=== PATIENT | male | born 1975 | race Caucasian/White ===

== ENCOUNTER 2018-07-22 18:19 | Emergency (ER) | payer MEDICAID ==
[2018-07-22 18:19] VITALS: BMI 27.3
[2018-07-22 18:28] VITALS: TEMP 99.3
[2018-07-22] MEDS ORDERED: Sodium Chloride 0.9% 1,000 ML IV STA (19:11)
[2018-07-22 19:52] LABS: BASO % 0.5 % (0.0-2.0); EOS # 0.1 K/uL (0.0-0.7); EOS % 0.9 % (0.0-4.0); HEMOGLOBIN 13.2 g/dL (12.0-18.0); LYMPH % 29.4 % (20.0-40.0); MEAN CELL VOLUME 81.8 fl (80.0-94.0); MEAN CORPUSCULAR HEMOGLOBIN 27.2 pg (27.0-31.0); MEAN CORPUSCULAR HGB CONC 33.2 g/dL (33.0-37.0); MEAN PLATELET VOLUME 9.5 fl (7.2-11.7); MONO # 0.6 K/uL (0.0-0.8); MONO % 5.9 % (0.0-10.0); NEUT # 6.5 K/uL (1.8-7.0); NEUT % 63.3 % (50.0-75.0); RBC 4.88 Mil/uL (4.40-5.90); WHITE BLOOD COUNT 10.2 K/uL (4.8-10.8)
[2018-07-22 20:02] LABS: ACETAMINOPHEN < 10.0 ug/ml (10.0-30.0); ALB/GLOB RATIO 1.1 (1.0-2.1); ALBUMIN 4.3 g/dL (3.5-5.0); ALT/SGPT 58 U/L (21-72); AST/SGOT 44 U/L (17-59); BLOOD UREA NITROGEN 15 mg/dl (9-20); CALCIUM 9.6 mg/dL (8.4-10.2); GFR NON-AFRICAN AMERICAN > 60; SALICYLATE < 1.0 mg/dl
[2018-07-22 20:12] LABS: BARBITURATES, UR NEGATIVE (NEGATIVE); BENZODIAZEPINES, UR NEGATIVE (NEGATIVE); OPIATES, UR NEGATIVE (NEGATIVE); PHENCYCLIDINE, UR NEGATIVE (NEGATIVE)
--- NOTE | 2018-07-22 22:37 | ED PDOC ---
HPI: Psych/Substance Abuse Time Seen by Provider: 07/22/18 18:35 Chief Complaint (Nursing): Psychiatric Evaluation Chief Complaint (Provider): suicidal ideation History Per: Patient Onset/Duration Of Symptoms: Days (2 weeks) Additional Complaint(s): 42yo with h/o depression, diabetes, homelessness for evaluation of depression and suicidal ideation with plan to walk in front of cars. He was just discharged today from [facility] after admission for depression and then had an outpatient appointment this afternoon which he missed and started to feel suicidal. Past Medical History Reviewed: Historical Data, Nursing Documentation, Vital Signs Vital Signs: Last Vital Signs Temp 99.3 F 07/22/18 18:25 Pulse 99 H 07/22/18 22:00 Resp 16 07/22/18 18:25 BP 156/86 H 07/22/18 18:25 Pulse Ox 97 07/22/18 18:25 - Medical History PMH: Bipolar Disorder, Depression, HTN, Post Traumatic Stress Disorder (parents 2004) Denies: Anxiety, Diabetes, Hepatitis, HIV, Personality Disorder, Schizophrenia, Seizures, Sexually Transmitted Disease Other PMH: Negative history above obtained from previous charts - Family History Family History: States: Hypertension - Social History Current smoker - smoking cessation education provided: Yes Alcohol: Other (h/o abuse) Drugs: Denies - Immunization History Hx Tetanus Toxoid Vaccination: No Hx Influenza Vaccination: No Hx Pneumococcal Vaccination: No - Home Medications Home Medications: Ambulatory Orders Medication Instructions Recorded MetFORMIN [glucOPHAGE] 1,000 mg PO BID 07/08/18 RX: traZODone [Desyrel] 50 mg PO HS #30 tab 07/10/18 RX: Gabapentin [Neurontin] 300 mg PO BID #60 cap 07/21/18 - Allergies Allergies/Adverse Reactions: Allergies Allergy/AdvReac Type Severity Reaction Status Date / Time haloperidol [From Haldol] AdvReac SWELLING Verified 07/23/18 16:03 Review of Systems ROS Statement: Except As Marked, All Systems Reviewed And Found Negative Psych: Positive for: Anxiety, Depression, Suicidal ideation Physical Exam - Reviewed Nursing Documentation Reviewed: Yes Vital Signs Reviewed: Yes - Physical Exam Appears: Positive for: Non-toxic, No Acute Distress Head Exam: Positive for: ATRAUMATIC, NORMOCEPHALIC Skin: Positive for: Warm, Dry Eye Exam: Positive for: EOMI, PERRL ENT: Positive for: Pharynx Is (clear) Neck: Positive for: Painless ROM, Supple Cardiovascular/Chest: Positive for: Regular Rate, Rhythm, Chest Non Tender. Negative for: Murmur Respiratory: Positive for: Normal Breath Sounds. Negative for: Respiratory Distress Gastrointestinal/Abdominal: Positive for: Soft Back: Positive for: Normal Inspection. Negative for: Decreased ROM Extremity: Positive for: Normal ROM. Negative for: Deformity Lymphatic: Negative for: Adenopathy Neurologic/Psych: Positive for: Alert. Negative for: Motor/Sensory Deficits - Laboratory Results Result Diagrams: 07/22/18 19:44 07/22/18 19:44 - ECG O2 Sat by Pulse Oximetry: 97 Disposition - Clinical Impression Clinical Impression: Depression Counseled Patient/Family Regarding: Studies Performed, Diagnosis - Disposition Disposition: Transfer of Care Disposition Time: 00:00 Condition: STABLE Patient Signed Over To: Faustino Garay Handoff Comments: Pending crisis ellenal
[2018-07-23 03:14] VITALS: BP 138/87; PULSE 90; RESP 20
--- NOTE | 2018-07-23 03:32 | ED PDOC ---
- Laboratory Results Result Diagrams: 07/22/18 19:44 07/22/18 19:44 - ECG O2 Sat by Pulse Oximetry: 100 Pulse Ox Interpretation: Normal Medical Decision Making Medical Decision Makin Patient endorsed to me by Dr. Iqbal pending Crisis eval 0230 Patient cleared by crisis with diagnosis: depression Patient's vitals normal and well appearing Disposition - Clinical Impression Clinical Impression: Depression - POA Present On Arrival: None - Disposition Referrals: [facility] [Outside] Disposition: Routine/Home Disposition Time: 02:30 Condition: STABLE Instructions: Depression Forms: [facility] (Malay)
--- NOTE | 2018-07-23 08:01 | CARD ---
APPROVED REPORT Date of service: 07/22/2018 EKG Measurement Heart [id number] <Conclusion> Sinus tachycardia Otherwise normal ECG
[2018-07-26 20:59] VITALS: O2SAT 97
== END 2018-07-23 03:48 | disposition home or self-care (01) ==
LOC: H.ER 18:19
DX: F32.9 Major depressive disorder, single episode, unspecified (principal); E11.9 Type 2 diabetes mellitus without complications; F17.200 Nicotine dependence, unspecified, uncomplicated; F31.9 Bipolar disorder, unspecified; F43.10 Post-traumatic stress disorder, unspecified; I10 Essential (primary) hypertension; Z59.0 Homelessness; Z79.84 Long term (current) use of oral hypoglycemic drugs
CPT/HCPCS: 80053; 80320; 80324; 80329; 80345; 80346; 80349; 80353; 80358; 80361; 83735; 83992; 84100; 84443; 85025; 93005; 96360; 99284; J7030